=== PATIENT | male | born 1950 | race Hispanic/Latino ===

== ENCOUNTER 2018-07-22 17:56 | Inpatient (IN) | payer MEDICARE ==
--- NOTE | 2018-07-22 18:17 | Emergency Department Report ---
ED Dizziness HPI - General Stated Complaint: DIZZY/LOW BLOOD PRESSURE Time Seen by Provider: 07/22/18 18:16 Source: patient Mode of arrival: Stretcher Limitations: No Limitations - History of Present Illness Initial Comments: Patient is a 68-year-old male presents emergency room with complaints of dizziness, lightheadedness and low blood pressure. Patient states that he has had 3 episodes involving the symptoms today. Patient states he recently had a change in his lisinopril dose going from 20 mg down to 10 mg. Patient denies chest pain or shortness of breath. Patient denies passing out. Patient denies headache. Patient denies any physical complaints at this time. Patient states she's not having his symptoms since he's had saline from EMS. MD Complaint: dizziness, lightheadedness, near syncope -: Sudden Timing: sudden onset Description: sense of movement, "room spinning", lightheadedness History of Same: No History of Trauma: No Severity: severe Improves With: rest Worsens With: movement, position, exertion Associated Symptoms: denies other symptoms. denies: ataxia, chest pain, confusion, cough, diaphoresis, fever/chills, loss of appetite, malaise, rash, seizure, shortness of breath, syncope, weakness - Related Data Home Medications Medication Instructions Recorded Confirmed Last Taken ALBUTEROL Inhaler(NF) 2 puff IH Q4H PRN 07/22/18 07/22/18 Unknown ARIPiprazole [Aripiprazole] 2 mg PO QDAY 07/22/18 07/22/18 Unknown Acetaminophen [Acetaminophen TAB] 650 mg PO PRN PRN 07/22/18 07/22/18 Unknown Dabigatran Etexilate Mesylate 150 mg PO BID 07/22/18 07/22/18 Unknown [Pradaxa] Dicyclomine [Bentyl] 10 mg PO QID 07/22/18 07/22/18 Unknown Digoxin 250 mg PO DAILY 07/22/18 07/22/18 Unknown Fenofibric Acid (Choline) 135 mg PO DAILY 07/22/18 07/22/18 Unknown [Fenofibric Acid] Furosemide [Lasix] 20 mg PO DAILY 07/22/18 07/22/18 Unknown Gabapentin [Neurontin] 100 mg PO TID 07/22/18 07/22/18 Unknown Linaclotide [Linzess] 145 mg PO QDAY 07/22/18 07/22/18 Unknown Lisinopril 10 mg PO DAILY 07/22/18 07/22/18 Unknown Metformin HCl 500 mg PO BID 07/22/18 07/22/18 Unknown Metoprolol Xl [Metoprolol 50 mg PO BID 07/22/18 07/22/18 Unknown SUCCINATE ER TAB] Omeprazole 10 mg PO DAILY 07/22/18 07/22/18 Unknown Potassium Chloride [K-Tab ER] 20 meq PO DAILY 07/22/18 07/22/18 Unknown Rosuvastatin Calcium 10 mg PO QDAY 07/22/18 07/22/18 Unknown Tamsulosin HCl [Flomax] 0.4 mg PO BID 07/22/18 07/22/18 Unknown clonazePAM [Clonazepam] 1 mg PO TID 07/22/18 07/22/18 Unknown Allergies Allergy/AdvReac Type Severity Reaction Status Date / Time No Known Allergies Allergy Verified 07/22/18 22:06 ED Review of Systems ROS: Stated complaint: DIZZY/LOW BLOOD PRESSURE Other details as noted in HPI Constitutional: denies: chills, fever Eyes: denies: eye pain, eye discharge, vision change ENT: denies: ear pain, throat pain Respiratory: denies: cough, shortness of breath, wheezing Cardiovascular: denies: chest pain, palpitations Endocrine: no symptoms reported Gastrointestinal: denies: abdominal pain, nausea, diarrhea Genitourinary: denies: urgency, dysuria Musculoskeletal: denies: back pain, joint swelling, arthralgia Skin: denies: rash, lesions Neurological: denies: headache, weakness, paresthesias Psychiatric: denies: anxiety, depression Hematological/Lymphatic: denies: easy bleeding, easy bruising ED Past Medical Hx - Past Medical History Previous Medical History?: Yes Hx Hypertension: Yes Hx Congestive Heart Failure: Yes Hx Diabetes: Yes Additional medical history: hld, gerd. afib - Surgical History Past Surgical History?: No - Family History Family history: no significant - Social History Smoking Status: Never Smoker Substance Use Type: None - Medications Home Medications: Home Medications Medication Instructions Recorded Confirmed Last Taken Type ALBUTEROL Inhaler(NF) 2 puff IH Q4H PRN 07/22/18 07/22/18 Unknown History ARIPiprazole [Aripiprazole] 2 mg PO QDAY 07/22/18 07/22/18 Unknown History Acetaminophen [Acetaminophen TAB] 650 mg PO PRN PRN 07/22/18 07/22/18 Unknown History Dabigatran Etexilate Mesylate 150 mg PO BID 07/22/18 07/22/18 Unknown History [Pradaxa] Dicyclomine [Bentyl] 10 mg PO QID 07/22/18 07/22/18 Unknown History Digoxin 250 mg PO DAILY 07/22/18 07/22/18 Unknown History Fenofibric Acid (Choline) 135 mg PO DAILY 07/22/18 07/22/18 Unknown History [Fenofibric Acid] Furosemide [Lasix] 20 mg PO DAILY 07/22/18 07/22/18 Unknown History Gabapentin [Neurontin] 100 mg PO TID 07/22/18 07/22/18 Unknown History Linaclotide [Linzess] 145 mg PO QDAY 07/22/18 07/22/18 Unknown History Lisinopril 10 mg PO DAILY 07/22/18 07/22/18 Unknown History Metformin HCl 500 mg PO BID 07/22/18 07/22/18 Unknown History Metoprolol Xl [Metoprolol 50 mg PO BID 07/22/18 07/22/18 Unknown History SUCCINATE ER TAB] Omeprazole 10 mg PO DAILY 07/22/18 07/22/18 Unknown History Potassium Chloride [K-Tab ER] 20 meq PO DAILY 07/22/18 07/22/18 Unknown History Rosuvastatin Calcium 10 mg PO QDAY 07/22/18 07/22/18 Unknown History Tamsulosin HCl [Flomax] 0.4 mg PO BID 07/22/18 07/22/18 Unknown History clonazePAM [Clonazepam] 1 mg PO TID 07/22/18 07/22/18 Unknown History ED Physical Exam - General Limitations: No Limitations General appearance: alert, in no apparent distress - Head Head exam: Present: atraumatic, normocephalic - Eye Eye exam: Present: normal appearance - ENT ENT exam: Present: mucous membranes moist - Neck Neck exam: Present: normal inspection - Respiratory Respiratory exam: Present: normal lung sounds bilaterally. Absent: respiratory distress - Cardiovascular Cardiovascular Exam: Present: regular rate, normal rhythm. Absent: systolic murmur, diastolic murmur, rubs, gallop - GI/Abdominal GI/Abdominal exam: Present: soft, normal bowel sounds - Rectal Rectal exam: Present: deferred - Extremities Exam Extremities exam: Present: normal inspection - Back Exam Back exam: Present: normal inspection - Neurological Exam Neurological exam: Present: alert, oriented X3 - Psychiatric Psychiatric exam: Present: normal affect, normal mood - Skin Skin exam: Present: warm, dry, intact, normal color. Absent: rash ED Course Vital Signs 07/22/18 07/22/18 07/22/18 18:16 19:24 20:30 Temperature 98.2 F Pulse Rate 94 H 85 94 H Respiratory 16 15 12 Rate Blood Pressure 88/46 Blood Pressure 73/52 118/70 [Left] O2 Sat by Pulse 100 94 96 Oximetry 07/22/18 07/22/18 07/22/18 21:08 22:00 22:30 Temperature Pulse Rate 87 73 88 Respiratory 8 L 13 18 Rate Blood Pressure 148/77 Blood Pressure 116/60 135/70 [Left] O2 Sat by Pulse 96 95 96 Oximetry 07/22/18 22:41 Temperature Pulse Rate 90 Respiratory 14 Rate Blood Pressure 148/77 Blood Pressure [Left] O2 Sat by Pulse 96 Oximetry - Reevaluation(s) Reevaluation #1: Blood pressure still on the low side. Patient will be given another 500 mL of saline. 07/22/18 18:26 Patient still denying symptoms. Patient is resting comfortably in bed. Patient's current blood pressure is 99/60. 07/22/18 19:45 Patient is improved. Patient will be admitted to the hospitalist service for further evaluation and treatment. Patient agrees with plan of care. Discussed all results with patient 07/22/18 21:19 - Consultations Consultation #1: Hospitalist consulted for admission. Hospitalist to admit patient and assume care of patient. 07/22/18 21:19 ED Medical Decision Making - Lab Data Result diagrams: 07/22/18 18:28 07/22/18 18:28 - EKG Data -: EKG Interpreted by Me EKG shows normal: axis, intervals, QRS complexes, ST-T waves Rate: normal - EKG Data Interpretation: other (afib) - Medical Decision Making Patient is a 68-year-old male presents to [facility] with complaints of dizziness an d near syncope and low blood pressure. Patient was given fluids and his blood pressures by well. Patient was admitted to the hospitalist service for further evaluation and treatment and observation. labs unremarkable except for renal insufficiency and patient does not have a history of renal insufficiency. - Differential Diagnosis renal insufficiency. Low blood pressure. Med reaction. Improper dosage Critical Care Time: Yes Critical care attestation.: If time is entered above; I have spent that time in minutes in the direct care of this critically ill patient, excluding procedure time. Critical Care Time: 45 minutes ED Disposition Clinical Impression: Dizziness, Renal insufficiency Hypotension Qualifiers: Hypotension type: unspecified hypotension type Qualified Code(s): I95.9 - Hypotension, unspecified Disposition: DC-09 OP ADMIT IP TO THIS HOSP Is pt being admited?: Yes Does the pt Need Aspirin: No Condition: Critical Time of Disposition: 21:24
[2018-07-22] MEDS ORDERED: NACL 0.9% 500 ML 500 ML IV ONE ×2 (18:27→19:37)
[2018-07-22 18:45] LABS: Basophils # (Auto) 0.1 K/mm3 (0.0-0.1); Basophils % (Auto) 0.7 % (0.0-1.8); Eosinophils # (Auto) 0.2 K/mm3 (0.0-0.4); Eosinophils % (Auto) 2.3 % (0.0-4.3); Hematocrit 40.4 % (35.5-45.6); Hemoglobin 13.4 gm/dl (11.8-15.2); Lymphocytes # (Auto) 1.6 K/mm3 (1.2-5.4); Mean Corpuscular HGB Conc 33 % (32-34); Mean Corpuscular Volume 81 fl (84-94); Monocytes % (Auto) 10.4 % (0.0-7.3); Platelet Count 280 K/mm3 (140-440); Red Blood Count 4.97 M/mm3 (3.65-5.03)
[2018-07-22 18:55] LABS: INR 1.38 (0.87-1.13)
[2018-07-22 19:03] LABS: Alanine Aminotransferase 21 units/L (7-56); Albumin 3.8 g/dL (3.9-5); BUN/Creatinine Ratio 14; Blood Urea Nitrogen 27 mg/dL (9-20); Calcium 8.8 mg/dL (8.4-10.2); Hemolysis Index 10
--- NOTE | 2018-07-22 22:05 | History and Physical Report ---
History of Present Illness Date of examination: 07/22/18 History of present illness: 68-year-old male with a history of hypertension, diabetes, CHF, A. fib, GERD, hyperlipidemia, chronic kidney disease comes emergency room because over the last 2 weeks he is at 3 episodes of feeling dizzy, blurred vision and his blood pressure dropped to the 70s. Today is symptoms occurred again and he was brought to the emergency room for evaluation. No syncopal episode In the emergency room he was given IV fluid to which she responded. Recently relocated back to [place] Review of systems Constitutional: no weight loss, chills, fever Ears, eyes, nose, mouth and throat: no nasal congestion, no nasal discharge, no sinus pressure, no vision change, no red eye. Neck: No neck pain or rigidity. Cardiovascular: no palpitations, chest pain Respiratory: no cough, shortness of breath Gastrointestinal: no hematochezia, abdominal pain Genitourinary : no frequency , no hematuria Musculoskeletal: no joint swelling or muscle ache Integumentary: no rash, no pruritis Neurological: no parathesias, no focal weakness Endocrine: no cold or heat intolerance, no polyuria or polydipsia Hematologic/Lymphatic: no easy bruising, no easy bleeding, no gland swelling Allergic/Immunologic: no urticaria, no angioedema. PAST MEDICAL HISTORY: hypertension, diabetes, CHF, A. fib, GERD, hyperlipidemia, chronic kidney disease PAST SURGICAL HISTORY: Cholecystectomy SOCIAL HISTORY: Denies alcohol, drugs, tobacco FAMILY HISTORY: Hypertension Medications and Allergies Allergies Allergy/AdvReac Type Severity Reaction Status Date / Time No Known Allergies Allergy Verified 07/22/18 22:06 Home Medications Medication Instructions Recorded Confirmed Last Taken Type ALBUTEROL Inhaler(NF) 2 puff IH Q4H PRN 07/22/18 07/22/18 Unknown History ARIPiprazole [Aripiprazole] 2 mg PO QDAY 07/22/18 07/22/18 Unknown History Acetaminophen [Acetaminophen TAB] 650 mg PO PRN PRN 07/22/18 07/22/18 Unknown History Dabigatran Etexilate Mesylate 150 mg PO BID 07/22/18 07/22/18 Unknown History [Pradaxa] Dicyclomine [Bentyl] 10 mg PO QID 07/22/18 07/22/18 Unknown History Digoxin 250 mg PO DAILY 07/22/18 07/22/18 Unknown History Fenofibric Acid (Choline) 135 mg PO DAILY 07/22/18 07/22/18 Unknown History [Fenofibric Acid] Furosemide [Lasix] 20 mg PO DAILY 07/22/18 07/22/18 Unknown History Gabapentin [Neurontin] 100 mg PO TID 07/22/18 07/22/18 Unknown History Linaclotide [Linzess] 145 mg PO QDAY 07/22/18 07/22/18 Unknown History Lisinopril 10 mg PO DAILY 07/22/18 07/22/18 Unknown History Metformin HCl 500 mg PO BID 07/22/18 07/22/18 Unknown History Metoprolol Xl [Metoprolol 50 mg PO BID 07/22/18 07/22/18 Unknown History SUCCINATE ER TAB] Omeprazole 10 mg PO DAILY 07/22/18 07/22/18 Unknown History Potassium Chloride [K-Tab ER] 20 meq PO DAILY 07/22/18 07/22/18 Unknown History Rosuvastatin Calcium 10 mg PO QDAY 07/22/18 07/22/18 Unknown History Tamsulosin HCl [Flomax] 0.4 mg PO BID 07/22/18 07/22/18 Unknown History clonazePAM [Clonazepam] 1 mg PO TID 07/22/18 07/22/18 Unknown History Exam - Physical Exam Narrative exam: General Apperance: The patient lying in bed, breathing comfortable HEENT: Normocephalic, atraumatic. Pupils equally round and reactive to light, EOMI, no sclericterus or JVD or thyromegaly or nodule. , no carotid bruit, muco us membranes moist, no exudate or erythema Heart: S1-S2, regular is rhythm Lungs: Clear to auscultation bilaterally, breathing comfortable Abdomen: Positive bowel sounds, soft, nontender, nondistended, no organomegaly Extremities: No edema cyanosis clubbing Skin: no rash, nodule, warm and dry Neuro: cranial nerves 2-12 intact, speech is fluent, motor/sensory intact - Constitutional Vitals: Temp Pulse Resp BP Pulse Ox 98.2 F 87 8 L 116/60 96 07/22/18 18:16 07/22/18 21:08 07/22/18 21:08 07/22/18 21:08 07/22/18 21:08 Results - Labs CBC & Chem 7: 07/22/18 18:28 07/22/18 18:28 Labs: Abnormal lab results 07/22/18 07/22/18 07/22/18 Range/Units 18:28 18:28 18:28 MCV 81 L (84-94) fl MCH 27 L (28-32) pg RDW 16.0 H (13.2-15.2) % [place] % (Auto) 10.4 H (0.0-7.3) % [place] # 1.0 H (0.0-0.8) K/mm3 PT 17.9 H (12.2-14.9) Sec. INR 1.38 H (0.87-1.13) Potassium 5.3 H (3.6-5.0) mmol/L BUN 27 H (9-20) mg/dL Creatinine 1.9 H (0.8-1.5) mg/dL Glucose 111 H (75-100) mg/dL Total Protein 6.2 L (6.3-8.2) g/dL Albumin 3.8 L (3.9-5) g/dL - Imaging and Cardiology EKG: image reviewed Assessment and Plan Assessment Hypotension Hyperkalemia diabetes CHF, stable A. fib, GERD hyperlipidemia chronic kidney disease Plan Admit to medicine Check cardiac enzymes, d-dimer, consult cardiology Hold Lopressor, lisinopril, give Kayexalate Check fingersticks and initiate insulin sliding scale DVT prophylaxis
[2018-07-22] MEDS ORDERED: D50W (25GM) Syringe IV PRN (22:44)
[2018-07-22] MEDS ORDERED: TYLENOL PO PRN (22:44)
[2018-07-22] MEDS ORDERED: SODIUM CHLORIDE FLUSH SYRINGE 10 ML IV PRN (22:44)
[2018-07-22] MEDS ORDERED: ZOFRAN IV PRN (22:44)
[2018-07-22] MEDS ORDERED: PERCOCET 5/325 PO PRN (22:44)
[2018-07-22] MEDS ORDERED: KIONEX PO ONE (23:58)
[2018-07-23 00:41] LABS: Creatine Kinase MB 2.6 ng/mL (0.0-4.0)
[2018-07-23 05:49] LABS: Basophils # (Auto) 0.1 K/mm3 (0.0-0.1); Basophils % (Auto) 1.3 % (0.0-1.8); Eosinophils # (Auto) 0.4 K/mm3 (0.0-0.4); Eosinophils % (Auto) 6.6 % (0.0-4.3); Hematocrit 40.4 % (35.5-45.6); Hemoglobin 13.4 gm/dl (11.8-15.2); Lymphocytes # (Auto) 1.8 K/mm3 (1.2-5.4); Lymphocytes % (Auto) 27.7 % (13.4-35.0); Mean Corpuscular HGB Conc 33 % (32-34); Mean Corpuscular Volume 81 fl (84-94); Monocytes # (Auto) 0.6 K/mm3 (0.0-0.8); Monocytes % (Auto) 9.6 % (0.0-7.3); Platelet Count 228 K/mm3 (140-440); Red Blood Count 5.02 M/mm3 (3.65-5.03); Red Cell Distribution Width 16.3 % (13.2-15.2)
[2018-07-23 06:38] LABS: Calcium 8.5 mg/dL (8.4-10.2)
[2018-07-23 06:40] LABS: Creatine Kinase MB 2.4 ng/mL (0.0-4.0)
[2018-07-23] MEDS ORDERED: NON-FORMULARY (Clonazepam [Clonazepam] 1 MG) PO SCH (08:00)
[2018-07-23] MEDS: HumaLOG SUB-Q SCH ×4 (09:00→22:32)
[2018-07-23] MEDS: PROTONIX PO SCH (09:34)
[2018-07-23] MEDS: PRADAXA PO SCH ×2 (09:34→21:39)
[2018-07-23] MEDS: GLUCOPHAGE PO SCH ×2 (09:34→17:31)
[2018-07-23] MEDS: FLOMAX PO SCH ×2 (09:35→21:39)
[2018-07-23] MEDS: NEURONTIN PO SCH ×3 (09:35→19:49)
[2018-07-23] MEDS: LASIX PO SCH (09:35)
[2018-07-23] MEDS: TRICOR PO SCH (09:35)
[2018-07-23] MEDS: SODIUM CHLORIDE FLUSH SYRINGE 10 ML IV SCH ×2 (09:38→22:32)
[2018-07-23] MEDS ORDERED: ARIPIPRAZOLE 2 MG PO SCH (10:00)
[2018-07-23] MEDS ORDERED: LINACLOTIDE 145 MG PO SCH (10:00)
[2018-07-23] MEDS ORDERED: OMEPRAZOLE 10 MG PO SCH (10:00)
[2018-07-23] MEDS ORDERED: NON-FORMULARY (Rosuvastatin Calcium [Rosuvastatin Calcium] 10 MG) PO SCH (10:00)
[2018-07-23] MEDS ORDERED: FENOFIBRIC ACID 135 MG PO SCH (10:00)
[2018-07-23] MEDS ORDERED: LOVENOX SUB-Q SCH ×2 (10:00)
--- NOTE | 2018-07-23 11:26 | Consultation ---
History of Present Illness Consult date: 07/23/18 Consult reason: other (dizzyness) History of present illness: 68-year-old male with a history of hypertension, diabetes, persistent atrial fibrillation, GERD, hyperlipidemia, chronic kidney disease presented with dizzyness and near syncope. He was noted to be hypotensive and was treated with IV fluids. BP and dizzyness have now improved. He recently relocated back to [place] and was previously being treated by bell captain, Dr. Woods, in [place]. ECG reveals atrial fibrillation with RBBB and ventricular rate in 80s. Past History Past Medical History: atrial fib, diabetes, hypertension, hyperlipidemia Past Surgical History: cholecystectomy Social history: denies: smoking, alcohol abuse Family history: hypertension Medications and Allergies Allergies Allergy/AdvReac Type Severity Reaction Status Date / Time No Known Allergies Allergy Verified 07/22/18 22:06 Home Medications Medication Instructions Recorded Confirmed Last Taken Type ALBUTEROL Inhaler(NF) 2 puff IH Q4H PRN 07/22/18 07/22/18 Unknown History ARIPiprazole [Aripiprazole] 2 mg PO QDAY 07/22/18 07/22/18 Unknown History Acetaminophen [Acetaminophen TAB] 650 mg PO PRN PRN 07/22/18 07/22/18 Unknown History Dabigatran Etexilate Mesylate 150 mg PO BID 07/22/18 07/22/18 Unknown History [Pradaxa] Dicyclomine [Bentyl] 10 mg PO QID 07/22/18 07/22/18 Unknown History Digoxin 250 mg PO DAILY 07/22/18 07/22/18 Unknown History Fenofibric Acid (Choline) 135 mg PO DAILY 07/22/18 07/22/18 Unknown History [Fenofibric Acid] Furosemide [Lasix] 20 mg PO DAILY 07/22/18 07/22/18 Unknown History Gabapentin [Neurontin] 100 mg PO TID 07/22/18 07/22/18 Unknown History Linaclotide [Linzess] 145 mg PO QDAY 07/22/18 07/22/18 Unknown History Lisinopril 10 mg PO DAILY 07/22/18 07/22/18 Unknown History Metformin HCl 500 mg PO BID 07/22/18 07/22/18 Unknown History Metoprolol Xl [Metoprolol 50 mg PO BID 07/22/18 07/22/18 Unknown History SUCCINATE ER TAB] Omeprazole 10 mg PO DAILY 07/22/18 07/22/18 Unknown History Potassium Chloride [K-Tab ER] 20 meq PO DAILY 07/22/18 07/22/18 Unknown History Rosuvastatin Calcium 10 mg PO QDAY 07/22/18 07/22/18 Unknown History Tamsulosin HCl [Flomax] 0.4 mg PO BID 07/22/18 07/22/18 Unknown History clonazePAM [Clonazepam] 1 mg PO TID 07/22/18 07/22/18 Unknown History Active Meds: Active Medications Acetaminophen (Tylenol) 650 mg PO Q4H PRN PRN Reason: Pain MILD(1-3)/Fever >100.5/TH[place]SON Atorvastatin Calcium (Lipitor) 20 mg PO DAILY [facility] Last Admin: 07/23/18 09:36 Dose: 20 mg Documented by: Clonazepam (Klonopin) 1 mg PO TID [facility] Last Admin: 07/23/18 09:35 Dose: 1 mg Documented by: Dabigatran (Pradaxa) 150 mg PO BID [facility]; Protocol Last Admin: 07/23/18 09:34 Dose: 150 mg Documented by: Dextrose (D50w (25gm) Syringe) 50 ml IV PRN PRN PRN Reason: Hypoglycemia Digoxin (Lanoxin) 0.25 mg PO DAILY@1700 [facility] Fenofibrate (Tricor) 145 mg PO DAILY [facility] Last Admin: 07/23/18 09:35 Dose: 145 mg Documented by: Furosemide (Lasix) 20 mg PO DAILY [facility] Last Admin: 07/23/18 09:35 Dose: 20 mg Documented by: Gabapentin (Neurontin) 100 mg PO TID [facility] Last Admin: 07/23/18 09:35 Dose: 100 mg Documented by: Insulin Human Lispro (Humalog) 0 unit SUB-Q ACHS [facility]; Protocol Last Admin: 07/23/18 09:00 Dose: Not Given Documented by: Metformin HCl (Glucophage) 500 mg PO BIDDIAB [facility] Last Admin: 07/23/18 09:34 Dose: 500 mg Documented by: Miscellaneous Medication (Aripiprazole [Aripiprazole]) 2 mg PO QDAY [facility] Miscellaneous Medication (Linaclotide [Linzess]) 145 mg PO QDAY [facility] Ondansetron HCl (Zofran) 4 mg IV Q4H PRN PRN Reason: Nausea And Vomiting Oxycodone/Acetaminophen (Percocet 5/325) 1 tab PO Q6H PRN PRN Reason: Pain, Moderate (4-6) Pantoprazole Sodium (Protonix) 20 mg PO QDAY [facility] Last Admin: 07/23/18 09:34 Dose: 20 mg Documented by: Sodium Chloride (Sodium Chloride Flush Syringe 10 Ml) 10 ml IV BID [facility] Last Admin: 07/23/18 09:38 Dose: 10 ml Documented by: Sodium Chloride (Sodium Chloride Flush Syringe 10 Ml) 10 ml IV PRN PRN PRN Reason: LINE FLUSH Tamsulosin HCl (Flomax) 0.4 mg PO BID [facility] Last Admin: 07/23/18 09:35 Dose: 0.4 mg Documented by: Review of Systems All systems: negative (per hpi) Physical Examination Vital Signs Temp Pulse Resp BP Pulse Ox 98.2 F 94 H 16 88/46 100 07/22/18 18:16 07/22/18 18:16 07/22/18 18:16 07/22/18 18:16 07/22/18 18:16 General appearance: no acute distress Neck: Positive: neck supple, trachea midline Cardiac: Positive: irregularly irregular Lungs: Positive: clear to auscultation Abdomen: Positive: Soft, Active Bowel Sounds Extremities: Absent: edema Results 07/23/18 05:04 07/23/18 05:04 Cardiac Enzymes 07/22/18 07/22/18 07/23/18 Range/Units 18:28 22:59 05:04 AST 23 (5-40) units/L CK-MB (CK-2) 2.6 2.4 (0.0-4.0) ng/mL Coagulation 07/22/18 Range/Units 18:28 PT 17.9 H (12.2-14.9) Sec. INR 1.38 H (0.87-1.13) CBC 07/22/18 07/23/18 Range/Units 18:28 05:04 WBC 9.5 6.5 (4.5-11.0) K/mm3 RBC 4.97 5.02 (3.65-5.03) M/mm3 Hgb 13.4 13.4 (11.8-15.2) gm/dl Hct 40.4 40.4 (35.5-45.6) % Plt Count 280 228 (140-440) K/mm3 Lymph # 1.6 1.8 (1.2-5.4) K/mm3 [place] # 1.0 H 0.6 (0.0-0.8) K/mm3 Eos # 0.2 0.4 (0.0-0.4) K/mm3 Baso # 0.1 0.1 (0.0-0.1) K/mm3 Comprehensive Metabolic Panel 07/22/18 07/23/18 Range/Units 18:28 05:04 Sodium 138 139 (137-145) mmol/L Potassium 5.3 H 4.0 D (3.6-5.0) mmol/L Chloride 104.0 105.7 (98-107) mmol/L Carbon Dioxide 22 19 L (22-30) mmol/L BUN 27 H 28 H (9-20) mg/dL Creatinine 1.9 H 1.3 (0.8-1.5) mg/dL Glucose 111 H 183 H (75-100) mg/dL Calcium 8.8 8.5 (8.4-10.2) mg/dL AST 23 (5-40) units/L ALT 21 (7-56) units/L Alkaline Phosphatase 42 (35-129) units/L Total Protein 6.2 L (6.3-8.2) g/dL Albumin 3.8 L (3.9-5) g/dL Assessment and Plan Dizzyness related to hypotension Persistent atrial fibrillation. Rate controlled and anticoagulated with Pradaxa . Htn HL DM Recommend: Hold lisinopril Stop digoxin Restart beta lalo Continue anticoagulation Check echo
--- NOTE | 2018-07-23 12:39 | XRay Report ---
PROCEDURE: XR CHEST 1V AP TECHNIQUE: Chest radiograph single view. HISTORY: dizzy COMPARISONS: None . FINDINGS: Heart: Normal. Mediastinum/Vessels: Normal. Lungs/Pleural space: Normal. Bony thorax: No acute osseous abnormality. Life support devices: None. IMPRESSION: No acute cardiopulmonary abnormality. This document is electronically signed by Estefany Veronica MD., July 23 2018 10:24:29 AM ET
[2018-07-23] MEDS: LOPRESSOR PO SCH ×2 (13:12→21:40)
[2018-07-23] MEDS ORDERED: LANOXIN PO SCH (17:00)
[2018-07-23] MEDS ORDERED: COLACE PO SCH (22:00)
[2018-07-23] MEDS: COLACE PO SCH (22:32)
[2018-07-24] MEDS: NEURONTIN PO SCH (09:49)
[2018-07-24] MEDS: GLUCOPHAGE PO SCH (09:50)
--- NOTE | 2018-07-24 11:10 | Progress Note ---
Assessment and Plan Dizzyness related to hypotension Persistent atrial fibrillation. Rate controlled and anticoagulated with Pradaxa. Htn HL DM Recommend: Continue to hold lisinopril and digoxin - do not restart Continue beta lalo at current dose Continue anticoagulation OK to discharge today or tomorrow with outpatient cardiology follow up Subjective Date of service: 07/24/18 Interval history: Pt reports dizzyness has completely resolved. He has no cardiac complaints. Objective Vital Signs Temp Pulse Pulse Resp BP Pulse Ox 07/24/18 07:58 92 H 07/24/18 07:44 98.3 F 95 H 18 142/81 94 07/24/18 04:05 98.2 F 76 16 146/78 92 07/23/18 23:19 97.5 F L 75 12 122/71 96 07/23/18 22:35 94 07/23/18 21:50 90 20 96 07/23/18 21:40 90 133/83 07/23/18 19:53 97.6 F 100 H 18 115/71 94 07/23/18 19:27 97.7 F 90 16 133/83 95 07/23/18 19:14 95 H 07/23/18 17:02 97.4 F L 81 16 118/76 94 07/23/18 16:00 72 07/23/18 14:57 98.0 F 80 18 116/63 93 07/23/18 13:12 86 132/77 07/23/18 13:10 86 132/77 94 - Physical Examination Neck: Positive: neck supple, trachea midline Cardiac: Positive: irregularly irregular Lungs: Positive: clear to auscultation Abdomen: Positive: Soft, Active Bowel Sounds Extremities: Absent: edema - Imaging and Cardiology EKG: image reviewed
[2018-07-24] MEDS: PROTONIX PO SCH (11:19)
[2018-07-24] MEDS: PRADAXA PO SCH (11:19)
[2018-07-24] MEDS: COLACE PO SCH (11:19)
[2018-07-24] MEDS: FLOMAX PO SCH (11:19)
[2018-07-24] MEDS: LOPRESSOR PO SCH (11:19)
[2018-07-24] MEDS: TRICOR PO SCH (11:20)
[2018-07-24] MEDS: LASIX PO SCH (11:20)
--- NOTE | 2018-07-24 12:14 | Discharge Summary ---
Providers - Providers Date of Admission: 07/22/18 22:04 Date of discharge: 07/24/18 Attending physician: RAJENDRA TREJO 07/22/18 22:44 Consult to Physician [CONS] Routine Comment: Consulting Provider: LEMUEL CRUZ Physician Instructions: Reason For Exam: hypotension, chf/cad [facility] Condition: Good Hospital course: patient presented with the new syncopal episode. Was found to be hypotensive 72/45. Patient was brought in blood pressure medications were held. Patient was gently rehydrated and responded exceptionally well. Patients beta lalo was decreased and have to 25 mg b.i.d. of metoprolol. Lisinopril digoxin was held. Patient had no more symptoms and felt great. Disposition: DC-30 STILL A PATIENT Core Measure Documentation - Palliative Care Palliative Care/ Comfort Measures: Not Applicable - Core Measures Any of the following diagnoses?: heart failure - Heart Failure Discharge Requirements ZARI/ARB for LVSD if EF <40%: No Reason for no ZARI/ARB: Hypotension Beta lalo at discharge: Yes Exam - Constitutional Vitals: Temp Pulse Resp BP Pulse Ox 98.3 F 96 H 18 151/76 94 07/24/18 07:44 07/24/18 11:19 07/24/18 07:44 07/24/18 11:19 07/24/18 07:44 General appearance: Present: no acute distress, well-nourished - EENT Eyes: Present: PERRL ENT: hearing intact, clear oral mucosa - Neck Neck: Present: supple, normal ROM - Respiratory Respiratory effort: normal Respiratory: bilateral: CTA - Cardiovascular Heart Sounds: Present: S1 & S2. Absent: rub, click - Extremities Extremities: pulses symmetrical, No edema Peripheral Pulses: within normal limits - Abdominal General gastrointestinal: Present: soft, non-tender, non-distended, normal bowel sounds Male genitourinary: Present: normal - Integumentary Integumentary: Present: clear, warm, dry - Musculoskeletal Musculoskeletal: gait normal, strength equal bilaterally - Psychiatric Psychiatric: appropriate mood/affect, intact judgment & insight - Neurologic Neurologic: CNII-XII intact, moves all extremities Plan Activity: fall precautions Weight Bearing Status: Full Weight Bearing Diet: low salt, low carbohydrate Special Instructions: record daily BP diary Follow up with: ROLAND COOPER MD [Primary Care Provider] - 7 Days MANA COLON MD [Staff Physician] - 7 Days Prescriptions: Metoprolol [Lopressor TAB] 25 mg PO BID #60 tablet
[2018-07-24 13:10] VITALS: BP 132/74
== END 2018-07-24 14:25 | disposition home or self-care (01) | DRG 314 ==
LOC: ED 17:56 → 4A 22:04
PROVIDERS: ADMIT Internal Medicine; ATTEND Internal Medicine
DX: I95.9 Hypotension, unspecified (principal); N17.0 Acute kidney failure with tubular necrosis; I13.0 Hypertensive heart and chronic kidney disease with heart failure and stage 1 through stage 4 chronic kidney disease, or unspecified chronic kidney disease; I48.1 Persistent atrial fibrillation; E87.5 Hyperkalemia; I50.9 Heart failure, unspecified; E11.22 Type 2 diabetes mellitus with diabetic chronic kidney disease; K21.9 Gastro-esophageal reflux disease without esophagitis; N18.9 Chronic kidney disease, unspecified; Z79.51 Long term (current) use of inhaled steroids; Z79.899 Other long term (current) drug therapy; Z79.84 Long term (current) use of oral hypoglycemic drugs; Z90.49 Acquired absence of other specified parts of digestive tract; Z82.49 Family history of ischemic heart disease and other diseases of the circulatory system
CPT/HCPCS: 36415; 71045; 80048; 80053; 82550; 82553; 82962; 84484; 85025; 85379; 85610; 93005; 93010; G0378; A9270-GY; J7040